=== PATIENT | male | born 1985 | race Caucasian/White ===

== ENCOUNTER 2024-06-05 18:58 | Emergency (ER) | payer MEDICAID, SELFPAY ==
[2024-06-05 19:14] VITALS: BP 102/54; BP 110/70; PULSE 49; PULSE 64; RESP 29; TEMP 36.8; O2SAT 100; O2SAT 99; BMI 26.6
--- NOTE | 2024-06-05 19:24 | MHC.EDTECH ---
Patient changed over with assistance of security belongings in
--- NOTE | 2024-06-05 19:33 | ED.OVERDOSE ---
HPI - Overdose General Chief Complaint: Overdose Stated Complaint: OD,narcan given Time Seen by Provider: 06/05/24 19:07 Source: patient and EMS Mode of arrival: EMS Limitations: no limitations History of Present Illness HPI Narrative: 38-year-old male presents emergency department after using 2 bags of heroin IV. Patient was given Narcan 8 mg intranasal in the field. Patient arrived lethargic was only arousable to verbal stimuli patient was hypoxic Narcan was ordered patient did wake up was yawning when I met the patient he denies SI he states he was taking medications high he denies trying to hurt himself he states he is otherwise healthy. complaint: accidental overdose Related Data Allergies Allergy/AdvReac Type Severity Reaction Status Date / Time No Known Allergies Allergy Verified 06/05/24 19:16 Review of Systems Review of Systems: Review of systems: General: Patient denies any fever chills recent illness or falls Musculoskeletal: Denies back pain or body aches or other injuries HEENT: denies headache, runny nose, ear pain Respiratory: denies shortness of breath, cough Cardiovascular: no chest pain or palpitations : denies dysuria, frequency Abdomen: no nausea vomiting denies abdominal pain Extremities: no swelling, no pain Skin: no diaphoresis Yes all other systems are reviewed and are negative PMFSH Social History Social History Smoked in Last 30 Days: Yes Use of substances other than those prescribed or required for medical reasons: Yes Substance Use Type: Heroin Substance Use Frequency: Chronic Longstanding Last Used Substance: Just Prior to Admission Advance Directives: No Advance Directives Information Provided: No Do you have a plan to hurt others: No Plan Physical Exam Vital Signs: Vital Signs: Last Vital Signs Temp 98.3 F 06/05/24 19:14 Pulse 49 L 06/05/24 19:14 Resp 29 H 06/05/24 19:14 BP 102/54 L 06/05/24 19:14 Pulse Ox 99 06/05/24 19:14 O2 Del Method Room Air 06/05/24 19:14 BMI result Body Mass Index 26.6 General: Well-appearing well-nourished in no signs of distress HEENT: Normocephalic atraumatic Neck: No signs of JVD, no masses no tenderness or lymphadenopathy Cardiovascular: Regular rate and rhythm Respiratory: Clear to auscultation bilaterally Abdomen: Soft nontender no masses rectal exam performed guiac negative quality process auditor confirmed. Extremities: Normal pedal pulses no signs of edema Skin: Dry warm no rashes Back: No tenderness full ROM Course Reevaluation(s) Reevaluation #1: 2013 patient remains alert and awake we did offer softball coach to cover her which did meet with the patient patient refused any services I will discharge the patient at this time. Medical Decision Making Medical Decision Making MDM Narrative: Patient was given Narcan by EMS the patient is awake and alert patient reassessed after 1 hour still awake and alert Differential Diagnosis Differential Diagnoses: The differential diagnosis associated with the presentation includes Accidental overdose versus intentional overdose patient is adamant that he is not suicidal that he was not trying to hurt himself Radiology Impression Discussion of test interpretation with radiology: I discussed test interpretation with the radiologist External Record Review Patient has never been here before this no previous records to review Discharge Plan Discharge Clinical Impression: Drug overdose, Accidental drug ingestion, Opiate overdose Patient Disposition: Home, Self-Care Instructions: Adult Overdose (ED) Additional Instructions: You were seen today in the emergency department for a opiate overdose. You were given Narcan by EMS your alert and oriented here. If you have any other concerns please return to the emergency department. You were offered softball coach and were not interested at this time. Print Language: Spanish
--- NOTE | 2024-06-05 20:13 | MHC.RECOVSUP ---
? Reason for consult Recovery support o Current location: ED21 o Identified substance use concern: NA - Overdose <del>-</del> <del>Withdrawal</del> <del>-</del> <del>Seeking</del> <del>ATS</del> <del>(detox)</del> <del>-</del> <del>Support</del> <del>?</del> <del>Intervention:</del> <del>o</del> <del>ATS</del> <del>bed</del> <del>search</del> <del>started/completed/in</del> <del>process</del> <del>o</del> <del>MAT</del> <del>started</del> <del>or</del> <del>to</del> <del>be</del> <del>started</del> <del>o</del> <del>Community</del> <del>resources</del> <del>provided</del> <del>o</del> <del>Harm</del> <del>reduction</del> <del>discussion</del> <del>?</del> <del>Plan:</del> <del>o</del> <del>Referral</del> <del>to</del> <del>[facility]</del> <del>o</del> <del>Bed</del> <del>search</del> <del>in</del> <del>progress</del> <del>to</del> <del>o</del> <del>Follow</del> <del>up</del> <del>tomorrow</del> <del>o</del> <del>Patient</del> <del>awaiting</del> <del>crisis</del> <del>evaluation</del> <del>o</del> <del>Patient</del> <del>to</del> <del>follow</del> <del>up</del> <del>with</del> <del>[facility]</del> <del>after</del> <del>discharge</del> ? Additional information: Patient refuse any services
[2024-06-05 20:23] VITALS: BP 110/62; PULSE 65; RESP 12; TEMP 36.7; O2SAT 97
[2024-06-05 20:24] VITALS: BP 110/62; PULSE 65; RESP 12; TEMP 36.7; O2SAT 97
[2024-06-05] MEDS: Naloxone HCl Nasal TAKE HOME 4 MG SPRAY 8 MG NOSTRILALT (20:26)
== END 2024-06-05 20:31 | disposition home or self-care (01) ==
PROVIDERS: Emergency Provider Student in an Organized Health Care Education/Training Program
DX: T40.1X1A Poisoning by heroin, accidental (unintentional), initial encounter (principal); Y92.89 Other specified places as the place of occurrence of the external cause; F11.10 Opioid abuse, uncomplicated; R53.83 Other fatigue; Z71.51 Drug abuse counseling and surveillance of drug abuser
CPT/HCPCS: 99285

== ENCOUNTER 2025-09-05 13:51 | Emergency (ER) | payer MEDICAID, SELFPAY ==
[2025-09-05 14:15] VITALS: BP 118/87; PULSE 102; RESP 18; TEMP 36.9; O2SAT 95; BMI 16.8
--- NOTE | 2025-09-05 14:42 | ED.GENADULT ---
HPI - General Adult General Chief complaint: Wound/Laceration Stated complaint: Animal Bite Time Seen by Provider: 09/05/25 14:25 Source: patient and RN notes reviewed Mode of arrival: ambulatory Limitations: no limitations History of Present Illness ED Provider: Denise Dominique PA-C HPI narrative: This is a 39-year-old male who presents emergency department with concerns of multiple tick bites. Patient reports that 2 days ago he noticed tick bites on the left flank, as well as on his right calf. He states that he started picking at his right calf unsure if the head of the tick is still in his right leg. He does report some mild muscle aches. He denies any fevers, chills, chest pain, shortness of breath, abdominal pain, nausea, vomiting or diarrhea. No other complaints or concerns at this time. MD complaint: Tick bites Onset (ago): day(s) Quality: aching Pain Consistency: constant Relieving factors: none Exacerbating factors: none Associated symptoms: denies other symptoms Treatments prior to arrival: none Related Data Previous Rx's ?Medication ?Instructions ?Recorded doxycycline hyclate 100 mg capsule 100 mg PO BID 10 days #20 caps 09/05/25 Allergies Allergy/AdvReac Type Severity Reaction Status Date / Time No Known Allergies Allergy Verified 09/05/25 14:20 Review of Systems Review of Systems: Constitutional : No Fever, No Chills ENT/Mouth : No sore throat, No Rhinorrhea Eyes: No Eye Pain, No Swelling, No Redness Cardiovascular : No Chest Pain, No SOB Respiratory : No Cough, No Sputum Gastrointestinal : No Nausea, No Vomiting, No Diarrhea, No abdominal Pain Genitourinary : No Dysuria, No Hematuria Musculoskeletal : No joint pain, No Myalgias, No Joint Swelling Skin : No Skin Lesions Neuro : No Weakness, No Numbness, No Headache All other systems reviewed and are negative Yes all other systems are reviewed and are negative Constitutional: Constitutional: Reports as per [facility] Social History Social History Substance Use Type: Heroin Advance Directives: No Advance Directives Information Provided: Yes Physical Exam ED Exam Exam: General: Awake, alert, and oriented X3. No acute distress. HEENT: Normal inspection CVS: Normal heart rate and rhythm. Pulses normal. Respiratory: No respiratory distress Skin: Warm, dry. See below Extremities: Normal to inspection Neuro: Oriented X 3. No motor deficit. No sensory deficit. Left flank with papule noted, no surrounding erythema or drainage. Right calf with insect bite, no tick or foreign body noted, mild surrounding erythema and warmth. Nontender Vital Signs: Vital Signs - 24 hr 09/05/25 14:15 09/05/25 15:27 Temperature 98.4 F 98.4 F Pulse Rate 102 H 102 H Respiratory Rate 18 18 Blood Pressure 118/87 118/87 Pulse Oximetry 95 95 Oxygen Delivery Method Room Air Room Air BMI result Body Mass Index 16.8 Medications Administered Discontinued Medications Generic Name Dose Route Start Last Admin Trade Name Freq PRN Reason Stop Dose Admin Diphtheria/Tetanus/Acell Pertussis 0.5 ml 09/05/25 15:29 09/05/25 15:33 Diphth,Pertus(Acell),Tet Adult 0.5 Ml Syringe IM 09/05/25 15:30 0.5 ml .ONCE ONE Administration Medical Decision Making Medical Decision Making [facility] Narrative: This is a 39-year-old male who presents emergency department with concerns of tick bite on his right calf and left flank. He noticed this 2 days ago. On arrival, patient mildly tachycardic at 102bpm, however patient anxious appearing, speaking in pressured speech. He is afebrile, no chest pain or shortness for breath. Patient was picking at his right calf, he does have an area of erythema, could be attributed to him picking at his calf, no foreign body appreciated. Left flank with insect bite noted, no surrounding erythema or warmth. No drainage. Will treat for early erythema migrans with doxycycline 100 mg b.i.d. times 10 days. Also radha for tick-borne illnesses. We advised patient if he develops any new or worsening symptoms to return. He is alert and oriented, well-appearing. Advised follow-up with his PCP. Also updated tetanus in the department today. Patient stable for discharge. Differential Diagnosis Differential Diagnoses: The differential diagnosis associated with the presentation includes Tick bite, cellulitis, erythema migrans, folliculitis, insect bite Discharge Plan Discharge Clinical Impression: Tick bite Patient Disposition: Home, Self-Care Instructions: Tick Bite (ED) Additional Instructions: You were seen in the emergency department due to tick bites. We are treating you prophylactically for Lyme disease. We also radha you for other tick-borne illnesses, we will call you if they are positive. Watch for any signs of infection including but not limited to increased redness, swelling, fevers or chills. If you develop any of these symptoms above or any other symptoms, please return. Please follow-up with your primary care physician regarding this visit. Prescriptions: New doxycycline hyclate 100 mg capsule 100 mg PO BID 10 Days Qty: 20 0RF Interventions: ED Discharge Assessment Last Done: 09/05/25 15:27 Discharge Date/Time: 09/05/25 15:28 Print Language: Malian
[2025-09-05 15:27] VITALS: BP 118/87; PULSE 102; RESP 18; TEMP 36.9; O2SAT 95
[2025-09-05] MEDS: Diphth,Pertus(ACell),Tet Adult 0.5 ML SYRINGE IM (15:33)
--- OUTSIDE RECORDS SUMMARY | 2025-09-05 16:10 | XMS_ITS | Encounter Summary ---
Author Organization [employer] Address [address] [place] [address] Care Team Providers Care Operations Intelligence Name Role Phone oJsefa Sauer MD Primary Care Provider [phone] Reason for Visit * Reason Onset Date Comments Med Refill 06/03/2024 Encounter Details Date Type Department Care Team ([facility] Contact Info) Description 06/03/2024 Refill [place] [facility] [address] [place] [address] Josefa Sauer MD [address] [place], [place] Panic disorder; Psychophysiological insomnia Social History Tobacco Use Types Packs/Day Years Used Date Smoking Tobacco: Every Day Cigarettes Smokeless Tobacco: Never Alcohol Use Standard Drinks/Week Comments Not Currently 0 (1 standard drink = 0.6 oz pur e alcohol) Depression Answer Date Recorded Patient Health Questionnaire-2 Score 0 11/09/2022 Sex and Gender Information Value Date Recorded Sex Assigned at Male 11/09/2022 11:03 AM EST Legal Sex Male 5:31 PM EST Gender Identity Male 11/09/2022 11:03 AM EST Sexual Orientation Straight 08/28/2024 9: 33 AM EDT documented as of this encounter Plan of Treatment Not on file documented as of this encounter Visit Diagnoses Diagnosis Panic disorder Panic disorder without agoraphobia Psychophysiological insomnia Persistent disorder of initiating or maintaining sleep documented in this encounter Care Teams Operations Intelligence Relationship Specialty Start Date End Date Josefa Sauer MD [address] [place], [place] PCP - General Family Medicine 12/01/22 documented as of this encounter
--- OUTSIDE RECORDS SUMMARY | 2025-09-05 16:10 | XMS_ITS | Encounter Summary ---
Author Organization [employer] Address [address] [place] [address] 7 [place] [address] Care Team Providers Care Software Test Specialist Name Role Phone Josefa Sauer MD Primary Care Provider [phone] Reason for Visit * Reason Onset Date Comments new medication 01/25/2023 Encounter Details Date Type Department Care Team ([facility] Contact Info) Description 01/25/2023 Telephone [place] [facility] [address] [place] [address] Josefa Sauer MD [address] [place] [address] new medication Social History Tobacco Use Types Packs/Day Years [...] Orientation Straight 08/28/2024 9: 33 AM EDT COVID-19 Exposure Response Date Recorded In the last 10 days, have yo u been in contact with someone who was confirmed or suspected to have Coronavirus/COVID-19? No / Unsure 01/25/2023 11:08 AM EDT documented as of this encounter Miscellaneous Notes * Telephone Encounter - Genny Vasquez - 06/13/2023 12:35 PM EDT Called and no way of leaving a message. * Telephone Encounter - Marleen Solano LPN - 05/18/2023 9:48 AM EDT Sent a letter to pt. Asking him to call [facility] to schedule an appt. As he needs to be seen for any medication refills. * Telephone Encounter - Marleen Solano LPN - 05/16/2023 10:31 AM EDT VM full. Unable to leave a message. * Telephone Encounter - Marleen Solano LPN - 05/15/2023 8:12 AM EDT VM full. Unable to leave message. * Telephone Encounter - Tatyana Torres LPN - 05/12/2023 11:03 AM EDT Call placed to patient. No Answer. Mail box is full unable to leave a messge. * Telephone Encounter - Genny Vasquez - 05/09/2023 3:43 PM EDT Is this taken care of? Due to her being out I wan tot make sure things are done before closing. Thank You, Genny * Telephone Encounter - Maryann Bueno - 01/25/2023 3:47 PM EDT Rx queued for provider to review and send. * Telephone Encounter - Genny Pedro - 01/25/2023 1:07 PM EDT [facility]) he is wondering when it is going to get called in [facility] to [facility]. documented in this encounter Plan of Treatment Not on file documented as of this encounter Visit Diagnoses Diagnosis Panic disorder Panic disorder without agoraphobia documented in this encounter Care Teams Software Test Specialist Relationship Specialty Start Date End Date Josefa Sauer MD [address] [place] [address] PCP - General Family Medicine 12/01/22 documented as of this encounter
--- OUTSIDE RECORDS SUMMARY | 2025-09-05 16:10 | XMS_ITS | Encounter Summary ---
Author Organization [employer] Address [address] [place] [address] [address] [place] [address] Care Team Providers Care Disc Pad Grinding Machine Feeder Name Role Phone Josefa Sauer MD Primary Care Provider [phone] Reason for Visit * Reason Onset Date Comments Med Refill 07/03/2024 Encounter Details Date Type Department Care Team ([facility] Contact Info) Description 07/03/2024 Refill [facility] [address] [place] [address] Josefa Sauer MD [address] [place] [address] Panic disorder Social History Tobacco Use Types Packs/Day Years [...] encounter Miscellaneous Notes * Telephone Encounter - An Monge - 07/03/2024 1:09 PM EDT Elías Last fill Date: 06.04.24 Last OV: 6..24/ NS on 06.26.24 Next OV: 9.24 Last UTOX: 5..24 CSA Date: None DNF Date: Due documented in this encounter Plan of Treatment Not on file documented as of this encounter Visit Diagnoses Diagnosis Panic disorder Panic disorder without agoraphobia documented in this encounter Care Teams Disc Pad Grinding Machine Feeder Relationship Specialty Start Date End Date Josefa Sauer MD [address] [place] [address] PCP - General Family Medicine 12/01/22 documented as of this encounter
--- OUTSIDE RECORDS SUMMARY | 2025-09-05 16:10 | XMS_ITS | Encounter Summary ---
Author Organization [employer] Address [address] [place] [address] [address] [place] [address] Care Team Providers Care Photographic Supervisor Name Role Phone Josefa Sauer MD Primary Care Provider Reason for Visit * Reason Onset Date Comments Med Refill 07/14/2024 Encounter Details Date Type Department Care Team ([facility] Contact Info) Description 07/14/2024 Refill [facility] [address] [place] [address] Josefa Sauer MD [address] [place] [address] Panic disorder Social History Tobacco Use Types [...] * Telephone Encounter - An Monge - 07/16/2024 10:27 AM EDT Elías Last fill Date: 06.14.24 Last OV: 5.4.24 Next OV: 07.19.24 Last UTOX: None CSA Date: None DNF Date: Due documented in this encounter Plan of Treatment Not on file documented as of this encounter Visit Diagnoses Diagnosis Panic disorder Panic disorder without agoraphobia documented in this encounter Care Teams Photographic Supervisor Relationship Specialty Start Date End Date Josefa Sauer MD [address] [place] [address] PCP - General Family Medicine 12/01/22 documented as of this encounter
--- OUTSIDE RECORDS SUMMARY | 2025-09-05 16:10 | XMS_ITS | Encounter Summary ---
Author Organization [employer] Address [address] [place] [address] [address] [place] [address] Care Team Providers Care Flexographic Printing Machinist Name Role Phone Josefa Sauer MD Primary Care Provider [phone] Encounter Details Date Type Department Care Team ([facility] Contact Info) Description 08/16/2024 Orders Only [place] [facility] [address] [place] [address] Josefa Sauer MD [address] [place] [address] Chronic hepatitis C without hepatic coma (CMS/HCC) Social History Tobacco Use Types Packs/Day Years [...] as of this encounter Visit Diagnoses Diagnosis Chronic hepatitis C without hepatic coma (HCC) documented in this encounter Care Teams Flexographic Printing Machinist Relationship Specialty Start Date End Date Josefa Sauer MD [address] [place] [address] PCP - General Family Medicine 12/01/22 documented as of this encounter
--- OUTSIDE RECORDS SUMMARY | 2025-09-05 16:10 | XMS_ITS | Encounter Summary ---
Author Organization [employer] Address [address] [place] [address] [place] [address] Care Team Providers Care Dance Artist Name Role Phone Josefa Sauer MD Primary Care Provider [phone] Reason for Visit * Reason Onset Date Comments Med Refill 06/03/2024 Encounter Details Date Type Department Care Team ([facility] Contact Info) Description 06/03/2024 Refill [place] [address] [place] [address] Josefa Sauer MD [address] [place] [address] Psychophysiological insomnia Social History Tobacco Use Types [...] as of this encounter Visit Diagnoses Diagnosis Psychophysiological insomnia Persistent disorder of initiating or maintaining sleep documented in this encounter Care Teams Dance Artist Relationship Specialty Start Date End Date Josefa Sauer MD [address] [place] [address] PCP - General Family Medicine 2/2/23 documented as of this encounter
--- OUTSIDE RECORDS SUMMARY | 2025-09-05 16:10 | XMS_ITS | Encounter Summary ---
Author Organization [employer] Address [address] [place] [address] [address] [place] [address] Care Team Providers Care Sfdc Developer Name Role Phone Josefa Sauer MD Primary Care Provider [phone] Encounter Details Date Type Department Care Team ([facility] Contact Info) Description 09/13/2024 Orders Only [place] [facility] [address] [place] [address] Josefa Sauer MD [address] [place] [address] Chronic hepatitis C without hepatic coma (CMS/HCC) [...] (HCC) documented in this encounter Care Teams Sfdc Developer Relationship Specialty Start Date End Date Josefa Sauer MD [address] [place] [address] PCP - General Family Medicine 12/01/22 documented as of this encounter
--- OUTSIDE RECORDS SUMMARY | 2025-09-05 16:10 | XMS_ITS | Clinical Summary ---
Author Organization [employer] Address [address] [facility] [address] [place] [address] Care Team Providers Care Field Irrigation Worker Name Role Phone Josefa Sauer MD Primary Care Provider [phone] Allergies No known active allergies Medications methadone (Dolophine) 10 MG/5ML solution Take 100 mg by mouth Once per day. Active QUEtiapine (SEROquel) 25 MG tabletIndication s:Psychophysiolo gical insomnia Take 1 tablet (25 mg) by mouth at bedtime. 90 tablet 07/19/2024 Active clonazePAM (KlonoPIN) 1 MG tabletIndication s:Panic disorder Take 1 tablet (1 mg) by mouth if needed each day (panic attack) for up to 16 days. Max per week = 4 8 tablet 09/18/2024 Active mirtazapine (Remeron) 7.5 MG tabletIndication s:Psychophysiolo gical insomnia TAKE 1 TABLET BY MOUTH AT BEDTIME. 90 tablet 12/03/2024 Active Active Problems Problem Noted Date Diagnosed Date Underweight 01/25/2023 Assessment & Plan (03/25/2023 8:34 AM EDT): Pt is actively using cocaine and has food insecurity. Only gets 303 and 100 of this goes to rent. Spending other food monies on drugs. Lab work-up unremarkable. Assessment & Plan (01/25/2023 1:24 PM EDT): - Still using cocaine once a week - Eating 3 meals per day - Getting food from survival center and [facility] Panic disorder 01/25/2023 Extreme poverty 01/25/2023 Assessment & Plan (01/25/2023 2:06 PM EDT): Filled out EDEAC ppwk now Heroin abuse (CMS/HCC) 01/25/2023 Assessment & Plan (01/25/2023 2:06 PM EDT): Only using heroin when he needs to bring himself down from a cocaine high. Overall not relapsing on heroin alone and is doing well on methadone. IS cutting down on the cocaine use. IVDU (intravenous drug user) 11/10/2022 Assessment & Plan (01/25/2023 2:04 PM EDT): No current abcessess or signs of infection. Assessment & Plan (11/10/2022 10:16 AM EST): Using weekly in addition to methadone. No active abcesesses. Pt have facial picking, may also be using meth. Asked for clonazepam at visit. MD declined. Psychophysiological insomnia 11/09/2022 Assessment & Plan (12/02/2022 12:34 PM EST): Doxepin working really well! Sheltered homelessness 11/09/2022 Assessment & Plan (01/25/2023 2:04 PM EDT): Still at the [facility] on [facility] [address], but he cant afford to continute to live there. Needs to apply for voucher housing. Explained that [facility] would be good places to start. Assessment & Plan (11/10/2022 10:13 AM EST): Completed the [facility] assessement with pt to add him to the [facility]. Discussed with pt that his placement at the [facility] with Sebastián Roper is TEMPORARY and he cannot afford that location at market rate (1100 per month). Pt has NO income and needs a voucher. Hepatitis C antibody positive in blood Assessment & Plan (01/25/2023 1:23 PM EDT): Completed PA today and awaiting response. Assessment & Plan (11/10/2022 10:14 AM EST): Reports he was told he was positive for Hep C at [facility]. He is not sure when he was infected. Open to do treatment. Still actively using. Explained the importance of not sharing needles. Immunizations Immunization Administration Dates Next Due Tdap 02/15/2023 Social History Tobacco Use Types Packs/Day Years Used Date Smoking Tobacco: Every Day Cigarettes Smokeless Tobacco: Never Tobacco Cessation:Ready to Q uit: Not Asked; Counseling Given: Not Answered Alcohol Use Standard Drinks/Week Comments Not Currently 0 (1 standard drink = 0.6 oz pur e alcohol) Depression Answer Date Recorded Patient Health Questionnaire-2 Score 0 11/09/2022 Sex and Gender Information Value Date Recorded Sex Assigned at Male 11/09/2022 11:03 AM EST Legal Sex Male 5:31 PM EST Gender Identity Male 11/09/2022 11:03 AM EST Sexual Orientation Straight 08/28/2024 9: 33 AM EDT Last Filed Vital Signs Vital Sign Reading Time Taken Comments Blood Pressure 95/59 08/28/2024 9:51 AM EDT Pulse 59 08/28/2024 9:51 AM EDT Temperature 36.6 C (97.9 F) 08/28/2024 9:51 AM EDT Respiratory Rate 17 08/28/2024 9:51 AM EDT Oxygen Saturation 98% 08/28/2024 9:51 AM EDT Inhaled Oxygen Concentration - - Weight 60.3 kg (133 lb) 08/28/2024 9:51 AM EDT Height 177.8 cm (5' 10 ) 12/27/2023 3:41 PM EST Body Mass Index 19.08 12/27/2023 3:41 PM EST Plan of Treatment Health Maintenance Due Date Last Done Comments Lipid Panel 1984 SDOH Screening 1984 Disability Screening 1984 Alcohol/Substance Use Screening 1996 Family Planning (PISQ) 1999 HPV Vaccines (1 - Male 3-dos e series) 1999 Hepatitis A Vaccines (1 of 2 - Risk 2-dose series) 2003 Hepatitis B Vaccines (1 of 3 - 19+ 3-dose series) 2003 Pneumococcal Vaccine: Pediatrics (0 to 5 Years) and At-Risk Patients (6 to 49) Years (1 of 2 - PCV) 2003 Depression Screening 11/09/2023 11/09/2022, 11/09/2022 COVID-19 Vaccine (1 - 2023-2 5 season) 2025 Influenza Vaccine (#1) 2025 10/29/2015 Tobacco Screening 08/28/2025 08/28/2024 DTaP/Tdap/Td Vaccines (3 - T d or Tdap) 10/07/2034 10/07/2024, 02/15/2023 Zoster Vaccines (1 of 2) 2034 RSV Patients and Patients Aged 60 years or older (1 - 1-dose 75+ series) 2059 HIV Screening Completed 11/09/2022 HIB Vaccines Aged Out No longer eligi ble based on patient's age to complete this topic IPV Vaccines Aged Out No longer eligi ble based on patient's age to complete this topic Meningococcal B Vaccine Aged Out No l onger eligible based on patient's age to complete this topic Meningococcal Vaccine Aged Out No vel emma eligible based on patient's age to complete this topic RSV under 20 months Aged Out No longe r eligible based on patient's age to complete this topic Rotavirus Vaccines Aged Out No longer eligible based on patient's age to complete this topic Procedures Procedure Name Priority Date/Time Associated Diagnosis Comments HIV ANTIBODY/ANTIGEN, 4TH GENERATION Routine 11/09/2022 Hepatitis C antibody positive in blood IV drug user from Last 3 Months or Most Recently Relevant to Health Maintenance Results * HIV ANTIBODY/ANTIGEN, 4TH GENERATION (11/09/2022) us Josefa Sauer MD LAB BLOOD ORDERABLES Final Res ult EXTERNAL LAB from Last 3 Months or Most Recently Relevant to Health Maintenance Care Teams Field Irrigation Worker Relationship Specialty Start Date End Date Josefa Sauer MD [address] [facility], [place] [address] PCP - General Family Medicine 12/01/22
[2025-09-06 07:03] LABS: Lyme Abs Screen <0.90 index
[2025-09-15 11:38] LABS: A. Phagocytophilum Ab IgG <1:64 (<1:64); A. Phagocytophilum Ab IgM <1:20 (<1:20)
== END 2025-09-05 15:28 | disposition home or self-care (01) ==
PROVIDERS: Physician Assistant Medical; Emergency Provider Emergency Medicine Emergency Medical Services; PCP Family Medicine
DX: S30.86AA Insect bite (nonvenomous) of flank, initial encounter (principal); S80.861A Insect bite (nonvenomous), right lower leg, initial encounter; R00.0 Tachycardia, unspecified; M79.10 Myalgia, unspecified site; W57.XXXA Bitten or stung by nonvenomous insect and other nonvenomous arthropods, initial encounter; Y93.9 Activity, unspecified; Y92.9 Unspecified place or not applicable; Y99.8 Other external cause status; Z23 Encounter for immunization
CPT/HCPCS: 36415; 86617; 86618; 86666; 86753; 90471; 90715; 96372; 99282; 99284